=== PATIENT | female | born 1945 | race Caucasian/White ===

== ENCOUNTER 2017-03-06 09:59 | Emergency (ER) | payer OTHER ==
[2017-03-06 10:06] VITALS: RESP 16; TEMP 97.3; O2SAT 92
[2017-03-06 13:06] VITALS: BP 134/76; PULSE 72
--- NOTE | 2017-03-06 13:21 | EDPHY ---
H & P Stated Complaint: [facility] fall pain in knee & back Time Seen by Provider: 03/06/17 10:12 HPI/ROS: Chief complaint: Mechanical fall with low back and left knee pain History of present illness: 71-year-old female presents to the emergency department after sustaining a fall injuring her left knee and low back. Patient reports she fell 2 days ago. She was at the gym and while getting off of a rowing machine she tripped over the 1 next to it. This was a mechanical fall. There was no loss of consciousness. No preceding events such as syncope. She reports initially she felt fine. However since then she has had slowly worsening pain in her left knee and low back. She has noted a bruise to the thigh. She is treating with Tylenol but pain continues to bother her. She denies injuries to other parts of the body. - Personal History Current Tetanus/Diphtheria Vaccine: Unsure Current Tetanus Diphtheria and Acellular Pertussis (TDAP): Unsure - Medical/Surgical History Other PMH: HTN, CKD - Social History Smoking Status: Never smoked - Physical Exam Exam: General Appearance: Alert, nontoxic Eyes: PERRLA Respiratory: Lungs clear to auscultation bilaterally Cardiovascular: Regular rate and rhythm. DP and PT pulses 2+. Gastrointestinal: Bowel sounds normal. Abdomen soft, nondistended, nontender. Neurological: Alert and oriented x4. Cranial nerves 2-12 grossly intact. Strength and sensation intact and symmetrical. Skin: Contusion noted to the mid left thigh. Musculoskeletal: Head is nontender. The cervical and thoracic spine are nontender. The lumbar spine and paraspinal muscles are tender diffusely. There is no point tenderness, crepitus, bony deformity or step-off appreciated on palpation of the lumbar spine. There is mild tenderness left knee. She is ranging it well. The rest of the extremities are unremarkable. Constitutional: Initial Vital Signs Temperature (C) 36.3 C 03/06/17 10:02 Heart Rate 64 03/06/17 10:02 Respiratory Rate 16 03/06/17 10:02 Blood Pressure 143/57 H 03/06/17 10:02 O2 Sat (%) 92 03/06/17 10:02 O2 Delivery Mode Room Air Allergies/Adverse Reactions: Iodinated Contrast Media - Oral and Allergy (Verified 03/06/17 10:06) Home Medications: Medication Instructions Recorded Cyclobenzaprine [Flexeril 10 MG 10 mg PO TID #10 tab 03/06/17 (*)] Medical Decision Making - Diagnostics Imaging Results: Imaging Impressions Extremity Venous Study 03/06/17 10:22 Impression: 1. No evidence of deep vein thrombosis in the left leg. 2. Soft tissue contusion suspected in area of bruising left medial upper calf. Findings discussed with DEONNA Turner at 11:03 hour, 03/06/2017. Knee X-Ray 03/06/17 10:22 Impression: Nothing acute identified. Lumbar Spine X-Ray 03/06/17 10:23 Impression: 1. Negative. No acute compression fracture. 2. Mild degenerative disk and moderate facet arthropathy. Imaging: Discussed imaging studies w/ scallop shucker Radiologist, I viewed and interpreted images myself ED Course/Re-evaluation: Patient seen under the supervision of my secondary supervising physician Dr. Sarah Willson. Patient presents to the emergency department after falling 2 days ago and subsequently developing discomfort across her low back and left knee. This was a mechanical fall. Further there is a contusion to her left leg. She is concerned about the development of a blood clot. Rest of physical exam is benign including a nonfocal neurologic exam. Her leg is neurovascularly intact. X-rays of the lumbar spine and knee are unremarkable. Ultrasound of the left leg is negative for DVT. Likely soft tissue injury. Symptomatic care at home is discussed. She is asked to follow up with Orthopedics for recheck. Return precautions are given. Patient voiced understanding and agreement with plan. Differential Diagnosis: Included but not limited to contusion, sprain or strain, muscle spasms, bony fracture, DVT Departure - Departure Disposition: Home, Routine, Self-Care Clinical Impression: Contusion Qualifiers: Encounter type: initial encounter Contusion area: thigh Laterality: left Qualified Code(s): S70.12XA - Contusion of left thigh, initial encounter Back pain Qualifiers: Back pain location: low back pain Chronicity: acute Back pain laterality: bilateral Sciatica presence: without sciatica Qualified Code(s): M54.5 - Low back pain Knee pain, left Qualifiers: Chronicity: acute Qualified Code(s): M25.562 - Pain in left knee Condition: Good Instructions: Low Back Strain (ED), Contusion in Adults (ED) Additional Instructions: Follow-up with a primary care doctor and orthopedic for recheck If symptoms worsen or new symptoms develop return to the emergency room for recheck Referrals: YONG NAVARRO [Other] - As per Instructions Roxi Burnett MD [[facility] Primary Care Provider] - As per Instructions Andrea Diallo MD [Medical Doctor] - As per Instructions Prescriptions: Cyclobenzaprine [Flexeril 10 MG (*)] 10 mg PO TID #10 tab
== END 2017-03-06 13:10 | disposition home or self-care (01) ==
DX: S89.92XA Unspecified injury of left lower leg, initial encounter (principal); S70.12XA Contusion of left thigh, initial encounter; S39.92XA Unspecified injury of lower back, initial encounter; I12.9 Hypertensive chronic kidney disease with stage 1 through stage 4 chronic kidney disease, or unspecified chronic kidney disease; N18.9 Chronic kidney disease, unspecified; W01.0XXA Fall on same level from slipping, tripping and stumbling without subsequent striking against object, initial encounter; Y92.39 Other specified sports and athletic area as the place of occurrence of the external cause; Y99.8 Other external cause status; Y93.43 Activity, gymnastics